=== PATIENT | male | born 1955 | race Caucasian/White ===

== ENCOUNTER → 2023-12-04 07:48 | Outpatient (REF) | payer OTHER, SELFPAY | LOC: HWRCS 07:48 | PROVIDERS: ATTENDING PHYSICIAN Internal Medicine Cardiovascular Disease; FAMILY PHYSICIAN Nurse Practitioner | DX: Z95.810 Presence of automatic (implantable) cardiac defibrillator (principal); I47.20 Ventricular tachycardia, unspecified | CPT/HCPCS: 93306 ==